=== PATIENT | female | born 1985 | race Caucasian/White ===

== ENCOUNTER 2019-06-13 11:34 | Emergency (ER) | payer OTHER, SELFPAY ==
[2019-06-13 11:43] VITALS: BP 125/77; PULSE 88; RESP 18; TEMP 36.9; O2SAT 100
--- NOTE | 2019-06-13 12:15 | ED.URI ---
HPI - URI/Sore Throat General Chief Complaint: Dizziness Stated Complaint: Dizzy Source: patient Mode of arrival: ambulatory Limitations: no limitations History of Present Illness HPI Narrative: The patient, who is a nonsmoker/ occ drinker, presents with 2 week history of scantly productive cough, congestion, nausea, SOB, dizziness that she describes as spinning , decreased liquid intake, chills and sweats. No fever measured, wheeze, injury to ears, ear drainage, earache, hearing changes, precordial chest pain, no gait changes, N/V/D/ dehydration, , dysuria or frequent/infrequent urination. Symptoms mild, worse with sleeping/supine. Pt states dizziness lasts for about 5 minutes and is worse when sitting up. Pt denies any alleviating factors MD elicited complaint: cough and other (SOB) Onset (ago): week(s) (2) Exacerbating factors: other (sitting up) Associated symptoms: chills, diaphoresis, cough, shortness of breath, nausea and other (congestion, dizziness/ spinning , decreased liquid intake) Related Data Allergies Allergy/AdvReac Type Severity Reaction Status Date / Time No Known Allergies Allergy Verified 06/13/19 11:47 Review of Systems Review of Systems: Narrative: General/Constitutional: Denies: weight loss,fever Eyes: Denies: Redness,discharge Ears/Nose/Throat: Denies: Epistaxis,ear discharge Respiratory: Denies: Hemoptysis Gastrointestinal: Denies: Vomiting, Bleeding-rectal Skin: Denies: Lumps, eruption Neurologic: Denies: Focal Weakness,Sz Hematologic: Denies: Petechiae/Purpura Psychiatric: Denies: Suicidal ideation All Other Systems: Reviewed and Negative All systems reviewed & are unremarkable except as noted in HPI and below PMFSH Family History Family History (Updated 03/10/14 @ 09:14 by DOCTOR UNKNOWN) Other Diabetes mellitus Family history of malignant neoplasm of male breast Family history of mental disorder Family history of seizure disorder Hypertension Social History Social History Smoking status: Never smoker Alcohol intake: current Comments At time of signature, agree with nursing past medical, surgical, social and family history. There is no relevant family history pertinent to the presenting complaint. Exam Narrative: Exam Narrative: General Appearance: Well appearing, Well nourished EYE: PERRLA, Conjunctiva clear, EOMI no nystagmus Neurological: A&O x3, CN II-XII intact Ears: Auditory canal normal, TM normal Nose: Rhinorrhea, Mucousal erythema Mouth/Throat: MM moist, Uvula midline, Pharyngeal erythema Neck: Supple, No adenopathy Respiratory: No respiratory distress, Breath sounds equal, Clear to auscultation Cardiovascular: RRR, No JVD Musculoskeletal: Non tender, Normal strength Skin: Warm, Dry Psychiatric: Normal mood, Normal affect Course Vital Signs Vital signs: Vital Signs Temperature 98.5 F 06/13/19 11:43 Pulse Rate 88 06/13/19 11:43 Respiratory Rate 18 06/13/19 11:43 Blood Pressure 125/77 06/13/19 11:43 Pulse Oximetry 100 06/13/19 11:43 Temperature 98.5 F 06/13/19 11:43 Pulse Rate 88 06/13/19 11:43 Respiratory Rate 18 06/13/19 11:43 Blood Pressure 125/77 06/13/19 11:43 Pulse Oximetry 100 06/13/19 11:43 MDM - URI/Sore Throat Lab Data Labs: Influenza A Screen Negative Reference Range: Negative Influenza B Screen Negative Reference Range: Negative Discharge Plan Discharge Clinical Impression: Positional vertigo Patient Disposition: Home, Self-Care Condition: Stable Instructions: Antibiotic Form, Vertigo (ED) Additional Instructions: Go to hospital for higher testing if not improved Prescriptions: New azelastine 137 mcg (0.1 %) aerosol,spray 137 mcg NASAL Q12H Qty: 30 RF: 0 meclizine 25 mg tablet 25 mg PO BID PRN (Reason: dizziness) Qty: 14 RF: 0 No Action alprazolam 0.25 mg tablet 0.25 mg PO DAILY Qty: 30 RF
== END 2019-06-13 12:30 | disposition home or self-care (01) ==
PROVIDERS: Emergency Provider Emergency Medicine; PCP Family Medicine
DX: R42 Dizziness and giddiness (principal); F41.9 Anxiety disorder, unspecified; F90.9 Attention-deficit hyperactivity disorder, unspecified type
CPT/HCPCS: 87804; 99213; G0463

== ENCOUNTER 2020-04-16 13:05 | Emergency (ER) | payer MEDICAID, SELFPAY ==
--- NOTE | ~2020-04-16 | XR_ITS ---
XR foot LT min 3V 04/16/2020 13:21 INDICATION: Left lateral foot pain for 3 weeks PROCEDURE: 4 views left foot COMPARISON: 01/05/2009 FINDINGS: Fracture, dislocation or subluxation is not identified. Lisfranc joint is intact. There is mild soft tissue swelling adjacent to the fifth MTP joint, nonspecific. No foreign bodies are identi fied. IMPRESSION: 1: NO ACUTE BONE OR JOINT ABNORMALITY IDENTIFIED. Reviewed, dictated and finalized at location [facility]. [facility]
--- NOTE | 2020-04-16 13:16 | ED.LOWEXIN ---
HPI - Extremity Injury (Lower) General Chief Complaint: Extremity Injury, Lower Stated Complaint: L/foot injury Time Seen by Provider: 04/16/20 13:17 Source: patient and RN notes reviewed History of Present Illness HPI Narrative: Patient is a 34-year-old female who presents to the urgent care with complaints of left foot pain. Patient states that it is hurting on the top and along the outside of the left foot. Patient states it has been hurting for approximately 3 weeks and seems to not be improving with elevation and Tylenol. 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 Patient denies of any known injury, fall, trauma to the foot. No other acute complaints. No acute distress noted. Patient aware of the plan of care. Some parts of this dictation were generated by voice recognition software and may contain typographical and/or grammatical inaccuracies. Related Data Allergies Allergy/AdvReac Type Severity Reaction Status Date / Time No Known Allergies Allergy Verified 03/10/20 09:34 Review of Systems Review of Systems: Narrative: CONSTITUTIONAL: Denies fever, chills, or sweats. EYES: Denies visual changes, redness, or discharge. ENT: Denies rhinorrhea, congestion, sore throat, or otalgia. CARDIOVASCULAR: Denies chest pain, palpitations, or edema. RESPIRATORY: Denies cough or dyspnea. GASTROINTESTINAL: Denies abdominal pain, nausea, vomiting, or diarrhea. GENITOURINARY: Denies dysuria or hematuria. SKIN: Denies rash or itching. MUSCULOSKELETAL: Reports of left foot pain NEUROLOGIC: Denies headache, numbness, or weakness. All other systems reviewed are negative, except as documented in HPI. [facility] Past Medical History Medical History Morbid (severe) obesity due to excess calories Family History Family History Father No problems noted. Mother Hypertension Depression Sibling No problems noted. Other Diabetes mellitus Family history of malignant neoplasm of male breast Family history of mental disorder Family history of seizure disorder Social History Social History Smoking status: Never smoker Alcohol intake: current Additional occupation/education comments: cafe server Gender identity (if verbalized by the patient): Female Comments At the time of my signature, I reviewed and agree with the nursing past medical, surgical, social, and family history. There is no relevant family history pertinent to the patient complaint. Exam Narrative: Exam Narrative: GENERAL: This is a well-nourished, well-developed patient, in no apparent distress. HEAD: normocephalic, atraumatic. EYES: PERRL. Sclera clear/white. Vision is grossly intact. EARS: External ears normal NOSE: External nose normal with no obvious nasal discharge, nares without redness, no rhinorrhea. THROAT: Mucous membranes moist NECK: Neck supple SKIN: warm, intact with no suspicious lesions or rash, good texture and turgor. NEURO: awake, alert, and oriented to person, place and time. There were no obvious focal neurologic abnormalities. EXTREMITIES: No obvious deformity or fracture noted to the left lower extremity. Positive strong left pedal pulse with capillary refill less than 2 seconds. Range of motion to left foot within normal limits. No obvious edema or ecchymosis to the left lower extremity. Pain exacerbated with weightbearing activity. Course Vital Signs Vital signs: Vital Signs Temperature 98.9 F 04/16/20 13:24 Pulse Rate 82 04/16/20 13:24 Respiratory Rate 18 04/16/20 13:24 Blood Pressure 137/85 04/16/20 13:24 Pulse Oximetry 99 04/16/20 13:24 Temperature 98.9 F 04/16/20 13:24 Pulse Rate 82 04/16/20 13:24 Respiratory Rate 18 04/16/20 13:24 Blood Pressure 137/
[2020-04-16 13:24] VITALS: BP 137/85; PULSE 82; RESP 18; TEMP 37.2; O2SAT 99
== END 2020-04-16 13:49 | disposition home or self-care (01) ==
PROVIDERS: Emergency Provider Nurse Practitioner Family; PCP Family Medicine
DX: M79.672 Pain in left foot (principal); E66.01 Morbid (severe) obesity due to excess calories; Z68.34 Body mass index [BMI] 34.0-34.9, adult
CPT/HCPCS: 73630; 99213; G0463

== ENCOUNTER 2020-05-14 15:27 | Emergency (ER) | payer MEDICAID, SELFPAY ==
--- NOTE | 2020-05-14 15:28 | ED.GENADULT ---
HPI - General Adult General Chief complaint: Upper Respiratory Infection Stated complaint: Body Aches x 2 days Time Seen by Provider: 05/14/20 15:28 Source: patient Mode of arrival: ambulatory Limitations: no limitations History of Present Illness HPI narrative: 34-year-old female patient presents to the [facility] with complaints of cold symptoms and body aches for the past 2 days. Patient states she was at work at [employer] when she started get some mild body aches and states it has been getting progressively worse the last couple of days. Patient also reports little bit of shortness of breath, a mild cough, rhinorrhea and some congestion. Denies any fevers but states that she has had a little bit of chills. Denies any sore throat or ear pain. Related Data Allergies Allergy/AdvReac Type Severity Reaction Status Date / Time No Known Allergies Allergy Verified 03/10/20 09:34 Review of Systems Review of Systems: Narrative: CONSTITUTIONAL: Denies fever, positive severe body aches, chills, denies sweats. EYES: Denies visual changes, redness, or discharge. ENT: Positive rhinorrhea, congestion, denies sore throat, or otalgia. CARDIOVASCULAR: Denies chest pain, palpitations, or edema. RESPIRATORY: Positive mild nonproductive cough, denies dyspnea. GASTROINTESTINAL: Denies abdominal pain, nausea, vomiting, or diarrhea. GENITOURINARY: Denies dysuria or hematuria. SKIN: Denies rash or itching. MUSCULOSKELETAL: Denies back pain, joint pain, or myalgia. NEUROLOGIC: Denies headache, numbness, or weakness. PSYCHIATRIC: Denies anxiety or depression. [facility] Past Medical History Medical History Morbid (severe) obesity due to excess calories Family History Family History Father No problems noted. Mother Hypertension Depression Sibling No problems noted. Other Diabetes mellitus Family history of malignant neoplasm of male breast Family history of mental disorder Family history of seizure disorder Social History Social History Smoking status: Never smoker Alcohol intake: current Additional occupation/education comments: restaurant server Gender identity (if verbalized by the patient): Female Comments At the time of my signature I agree with nursing past medical history, surgical, social, and family history. There is no relevant family history pertinent to the presenting complaint. Exam Narrative: Exam Narrative: GENERAL: Well-appearing, well-nourished, and in no acute distress. HEAD: Normocephalic, atraumatic. EYES: PERRLA and EOMI. ENT: Nares with erythema and edema noted bilaterally, no rhinorrhea or epistaxis. Mucous membranes moist. Posterior pharynx no erythema, tonsillectomy, exudates or lesions present. Bilateral TMs are clear no erythema or foreign bodies to the canal. NECK: Supple. No lymphadenopathy CHEST: Clear to auscultation. No respiratory distress. HEART: Regular rate and rhythm. No murmur heard. Normal peripheral pulses. ABDOMEN: Soft, nontender, nondistended, normal active bowel sounds. EXTREMITIES: Normal range of motion. No edema. SKIN: Warm, dry, no rash. NEURO: No focal deficits. Alert and oriented x3. Course Vital Signs Vital signs: Vital Signs Temperature 36.7 C 05/14/20 15:47 Pulse Rate 90 05/14/20 15:47 Respiratory Rate 18 05/14/20 15:47 Blood Pressure 110/65 05/14/20 15:47 Pulse Oximetry 100 05/14/20 15:47 Temperature 36.7 C 05/14/20 15:47 Pulse Rate 90 05/14/20 15:47 Respiratory Rate 18 05/14/20 15:47 Blood Pressure 110/65 05/14/20 15:47 Pulse Oximetry 100 05/14/20 15:47 Vital signs reviewed Medical Decision Making Differential Diagnosis Differential Diagnosis: Differential diagnosis: Allergic rhinitis, chronic sinusitis, tonsillitis, acute sinusitis, infectious monon
[2020-05-14 15:47] VITALS: BP 110/65; PULSE 90; RESP 18; TEMP 36.7; O2SAT 100
== END 2020-05-14 16:00 | disposition home or self-care (01) ==
PROVIDERS: Emergency Provider Nurse Practitioner Family; PCP Family Medicine
DX: U07.1 COVID-19 (principal); E66.01 Morbid (severe) obesity due to excess calories; Z68.34 Body mass index [BMI] 34.0-34.9, adult
CPT/HCPCS: 87081; 87147; 87426; 87804; 87880; 99213; C9803; G0463

== ENCOUNTER 2020-08-22 17:24 | Emergency (ER) | payer BC, SELFPAY ==
--- NOTE | 2020-08-22 17:33 | ED.ABDPAIN ---
HPI - Abdominal Pain General Chief Complaint: Abdominal Pain Stated Complaint: stomach pains Time Seen by Provider: 08/22/20 17:33 Source: patient and family Mode of arrival: ambulatory History of Present Illness HPI narrative: PATIENT STATES SHE IS ON HER PERIOD AND HER CRAMPING IS WORSE THAN NORMAL. PATIENT STATES SHE HAS TAKEN MIDOL 6 HOURS AGO WITH LITTLE RELIEF. PATIENT DENIES ANY ABNORMAL BLEEDING. NO LARGE CLOTS. PATIENT DENIES ANY HISTORY OF ENDOMETRIOSIS AND DENIES ANY CONCERN FOR STD . NO CONSTIPATION AND NO DIARRHEA. no nausea normal appetite and activity. MD elicited complaint: abdominal pain Quality: cramping Radiation: none Migration to: no migration Exacerbating factors: nothing Relieving factors: nothing Associated symptoms: denies other symptoms Related Data Hx Last Menstrual Period: CURRENTLY ON PERIOD Patient : No Allergies Allergy/AdvReac Type Severity Reaction Status Date / Time No Known Allergies Allergy Verified 08/05/20 12:39 Review of Systems Review of Systems: Narrative: CONSTITUTIONAL: Denies fever, chills, or sweats. EYES: Denies visual changes, redness, or discharge. ENT: Denies rhinorrhea, congestion, sore throat, or otalgia. CARDIOVASCULAR: Denies chest pain, palpitations, or edema. RESPIRATORY: Denies cough or dyspnea. GASTROINTESTINAL: Denies abdominal pain, nausea, vomiting, or diarrhea. reports cramping with period is worse than normal GENITOURINARY: Denies dysuria or hematuria. SKIN: Denies rash or itching. MUSCULOSKELETAL: Denies back pain, joint pain, or myalgia. NEUROLOGIC: Denies headache, numbness, or weakness. PSYCHIATRIC: Denies anxiety or depression. [facility] Past Medical History Medical History BMI 34.0-34.9,adult BMI 37.0-37.9, adult COVID-19 Menstrual cramps Morbid (severe) obesity due to excess calories Other symptoms and signs involving emotional state Tattoo of skin Family History Family History Father No problems noted. Mother Hypertension Depression Sibling No problems noted. Other Diabetes mellitus Family history of malignant neoplasm of male breast Family history of mental disorder Family history of seizure disorder Social History Social History Alcohol intake: current Substance use: never Substance use type: does not use Additional occupation/education comments: dietary server Gender identity (if verbalized by the patient): Female Comments At time of signature, agree with nursing past medical, surgical, social and family history. There is no relevant family history pertinent to the presenting complaint Exam Narrative: Exam Narrative: GENERAL: Well-appearing, well-nourished, and in no acute distress. HEAD: Normocephalic, atraumatic. EYES: PERRLA and EOMI. ENT: Nares clear, no rhinorrhea or epistaxis. Mucous membranes moist. NECK: Supple. CHEST: Clear to auscultation. No respiratory distress. HEART: Regular rate and rhythm. No murmur heard. Normal peripheral pulses. ABDOMEN: Soft, nontender, nondistended, normal active bowel sounds. EXTREMITIES: Normal range of motion. No edema. SKIN: Warm, dry, no rash. NEURO: No focal deficits. Alert and oriented x3. [place] Com[place] Scale Eye Opening: Spontaneous 4 [place] Coma Scale Motor: Obeys Commands 6 [place] Coma Scale Verbal: Oriented 5 [place] Coma Scale Total 15 Course Vital Signs Vital signs: Vital Signs Temperature 36.2 C L 08/22/20 17:35 Pulse Rate 92 08/22/20 17:35 Respiratory Rate 20 08/22/20 17:35 Blood Pressure 120/81 08/22/20 17:35 Pulse Oximetry 99 08/22/20 17:35 Temperature 36.2 C L 08/22/20 17:35 Pulse Rate 92 08/22/20 17:35 Respiratory Rate 20 08/22/20 17:35 Blood Pressure 120/81 08/22/20 17:35 Pulse Oximetry 99 08/22/20 17:35 MDM - Abdomi
[2020-08-22 17:35] VITALS: BP 120/81; PULSE 92; RESP 20; TEMP 36.2; O2SAT 99
[2020-08-22] MEDS: KETOROLAC 30 MG/ML VIAL (*BKC) IM (17:52)
--- NOTE | 2020-08-22 17:59 | ED.ABDPAIN ---
HPI - Abdominal Pain General Chief Complaint: Abdominal Pain Stated Complaint: stomach pains Time Seen by Provider: 08/22/20 17:33 Source: patient and family Mode of arrival: ambulatory History of Present Illness HPI narrative: PATIENT STATES SHE IS ON HER PERIOD AND IS HAVING WORSE THAN NORMAL ABDOMINAL CRAMPING. PATIENT DENIES ANY CONCERN FOR OR STD. PATIENT HAS TAKEN MIDOL TODAY WITH MINIMAL RELEIF IN HER DISCOMFORT. NO PELVIC PAIN. NO CONSTIPATION AND NO DIARRHEA. NO NAUSEA AND NO FEVER. PATIENT DENIES ANY HISTORY OF ENDOMETRIOSIS. MD elicited complaint: abdominal pain Quality: cramping Radiation: none Migration to: no migration Exacerbating factors: nothing Relieving factors: nothing Associated symptoms: denies other symptoms Related Data Allergies Allergy/AdvReac Type Severity Reaction Status Date / Time No Known Allergies Allergy Verified 08/05/20 12:39 Review of Systems Review of Systems: Narrative: CONSTITUTIONAL: Denies fever, chills, or sweats. EYES: Denies visual changes, redness, or discharge. ENT: Denies rhinorrhea, congestion, sore throat, or otalgia. CARDIOVASCULAR: Denies chest pain, palpitations, or edema. RESPIRATORY: Denies cough or dyspnea. GASTROINTESTINAL: Denies abdominal pain, nausea, vomiting, or diarrhea.ABDOMINAL CRAMPING GENITOURINARY: Denies dysuria or hematuria. SKIN: Denies rash or itching. MUSCULOSKELETAL: Denies back pain, joint pain, or myalgia. NEUROLOGIC: Denies headache, numbness, or weakness. PSYCHIATRIC: Denies anxiety or depression. [facility] Past Medical History Medical History (Updated 08/22/20 @ 18:11 by VINNIE Rudd) BMI 34.0-34.9,adult BMI 37.0-37.9, adult COVID-19 Dysmenorrhea Menstrual cramps Morbid (severe) obesity due to excess calories Other symptoms and signs involving emotional state Tattoo of skin Family History Family History Father No problems noted. Mother Hypertension Depression Sibling No problems noted. 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 There is no relevant family history pertinent to the presenting complaint Exam Narrative: Exam Narrative: GENERAL: Well-appearing, well-nourished, and in no acute distress. HEAD: Normocephalic, atraumatic. EYES: PERRLA and EOMI. ENT: Nares clear, no rhinorrhea or epistaxis. Mucous membranes moist. NECK: Supple. CHEST: Clear to auscultation. No respiratory distress. HEART: Regular rate and rhythm. No murmur heard. Normal peripheral pulses. ABDOMEN: Soft, nontender, nondistended, normal active bowel sounds. EXTREMITIES: Normal range of motion. No edema. SKIN: Warm, dry, no rash. NEURO: No focal deficits. Alert and oriented x3. [place] Coma Scale Eye Opening: Spontaneous 4 [place] Coma Scale Motor: Obeys Commands 6 [place] Coma Scale Verbal: Oriented 5 [place] Coma Scale Total 15 Course Vital Signs Vital signs: Vital Signs Temperature 36.2 C L 08/22/20 17:35 Pulse Rate 92 08/22/20 17:35 Respiratory Rate 20 08/22/20 17:35 Blood Pressure 120/81 08/22/20 17:35 Pulse Oximetry 99 08/22/20 17:35 Temperature 36.2 C L 08/22/20 17:35 Pulse Rate 92 08/22/20 17:35 Respiratory Rate 20 08/22/20 17:35 Blood Pressure 120/81 08/22/20 17:35 Pulse Oximetry 99 08/22/20 17:35 MDM - Abdominal Pain Differential Diagnosis Differential diagnosis: Likely abdominal pain, acute appendicitis, constipation, div
== END 2020-08-22 18:23 | disposition home or self-care (01) ==
PROVIDERS: Emergency Provider Nurse Practitioner Family; PCP Family Medicine
DX: R10.9 Unspecified abdominal pain (principal); N94.6 Dysmenorrhea, unspecified; Z86.16 Personal history of COVID-19; E66.01 Morbid (severe) obesity due to excess calories
CPT/HCPCS: 81003; 81025; 96372; 99213; G0463; J1885

== ENCOUNTER 2021-04-27 18:40 | Emergency (ER) | payer OTHER, SELFPAY ==
--- NOTE | ~2021-04-27 | XR_ITS ---
[id number] DATE: 04/27/2021 19:09 INDICATION: Injury, right lateral rib pain TECHNIQUE: PA chest. 3 views of the right ribs. COMPARISON: None FINDINGS: No right rib fracture is evident. Normal heart size. No hilar or mediastinal enlargement. No pulmonary infiltrate or consolidation, ple ural effusion or pulmonary vascular congestion or pneumothorax. IMPRESSION: No active cardiac pulmonary disease No detectable right rib fracture Reviewed, dictated and finalized at Location [facility]. Reviewed, dictated and finalized at location A. [facility]
[2021-04-27 18:53] VITALS: BP 134/88; PULSE 73; RESP 18; TEMP 36.6; O2SAT 98
--- NOTE | 2021-04-27 18:58 | ED.GENADULT ---
HPI - General Adult General Chief complaint: Skin/Abscess/Foreign Body Stated complaint: rib pain Source: patient Mode of arrival: ambulatory Limitations: no limitations History of Present Illness HPI narrative: 35 y/o female. PMHx [place], MDD. Presents to [facility] today with acute complaints of RT side rib pain, worsening in the past 1 week. Client reports that he significant other had been lifting her up to pop her back , prior to her manifestation onset. However, adds that after the initial incident, she had also accidentally ran into a stand at work, further injuring her ribs. No additional injury has been identified. No dyspnea, palpitations, chest pain, hemoptysis. She has not yet sought out medical evaluation until now, today. Notes that home IBU has aided mildly with pain relief. No additional acute c/o illness upon PE. Related Data Allergies Allergy/AdvReac Type Severity Reaction Status Date / Time No Known Allergies Allergy Verified 04/27/21 18:59 Review of Systems Review of Systems: CONSTITUTIONAL: Denies fever, chills, sweats. EYES: Denies visual changes, redness, discharge. ENT: Denies rhinorrhea, congestion, sore throat, otalgia. CARDIOVASCULAR: Denies chest pain, palpitations, edema. RESPIRATORY: Denies dyspnea, wheezing, cough GASTROINTESTINAL: Denies abdominal pain, nausea, vomiting, diarrhea. GENITOURINARY: Denies dysuria, hematuria, abnormal discharge SKIN: Denies rash or itching. MUSCULOSKELETAL: RT side rib pain. Denies additional joint pain or myalgia. NEUROLOGIC: Denies numbness, or focal weakness. PSYCHIATRIC: Denies anxiety or depression. All systems reviewed & are unremarkable except as noted in HPI and below PMFSH Past Medical History Medical History Anxiety disorder, unspecified Attention-deficit hyperactivity disorder, unspecified type BMI 34.0-34.9,adult BMI 37.0-37.9, adult COVID-19 Dietary counseling and surveillance (05/03/15) Dysmenorrhea External hemorrhoid FH: thyroid disease Hematochezia Influenza B Menstrual cramps Morbid (severe) obesity due to excess calories Other symptoms and signs involving emotional state Tattoo of skin Family History Family History Father No problems noted. Mother Hypertension Depression Sibling No problems noted. Other Diabetes mellitus Family history of malignant neoplasm of male breast Family history of mental disorder Family history of seizure disorder Social History Social History Second hand tobacco smoke exposure: Yes Alcohol intake: current Substance use: never Substance use type: does not use Additional occupation/education comments: cafeteria server Gender identity (if verbalized by the patient): Female Exam Narrative: GENERAL: This is a well-nourished, well-developed patient, in no apparent distress. NOSE: External nose normal. NECK: Neck supple, non-tender without lymphadenopathy, masses or thyromegaly. CARDIOVASCULAR: Regular rate and rhythm without murmurs, gallops, or rubs. RESPIRATORY: Clear to auscultation. Breath sounds equal bilaterally. No wheezes, rales, or rhonchi. With reproducible chest wall pain located to intercostal spaces 5-8. No crepitus, no flailing. Chest wall rises symetrically. GASTROINTESTINAL: Abdomen soft, non-tender, nondistended. SKIN: warm, intact. NEURO: No focal neurologic deficits. Course Course Level of Care: Express Care Visit Vital Signs Vital signs: Vital Signs Temperature 36.6 C 04/27/21 18:53 Pulse Rate 73 04/27/21 18:53 Respiratory Rate 18 04/27/21 18:53 Blood Pressure 134/88 04/27/21 18:53 Pulse Oximetry 98 04/27/21 18:53 Temperature 36.6 C 04/27/21 18:53 Pulse Rate 73 04/27/21 18:53 Respiratory Rate 18 04/27/21 18:53 Blood Pressure 13
== END 2021-04-27 19:24 | disposition home or self-care (01) ==
PROVIDERS: Emergency Provider Nurse Practitioner Adult Health; PCP Family Medicine
DX: R07.81 Pleurodynia (principal); E66.01 Morbid (severe) obesity due to excess calories; Z68.33 Body mass index [BMI] 33.0-33.9, adult; Z86.16 Personal history of COVID-19; F90.9 Attention-deficit hyperactivity disorder, unspecified type; F41.1 Generalized anxiety disorder
CPT/HCPCS: 71101; 99213; G0463

== ENCOUNTER 2022-05-13 14:08 | Emergency (ER) | payer OTHER, SELFPAY ==
--- NOTE | ~2022-05-13 | XR_ITS ---
EXAMINATION: XR chest 2V Exam Date/Time: 05/13/2022 14:26 FURNITURE P[employer]ER HISTORY: cough congestion w/sob Comparison: 08/25/2011. RESULT: Lines, tubes, and devices: None. Lungs and pleura: Clear. Cardiomediastinal silhouette: Stable. Calcified left hilar node. Other: No acute osseous or upper abdominal finding. IMPRESSION: No acute cardiopulmonary process. Reviewed, dictated and finalized at location K. IT[facility] PACKER
--- NOTE | 2022-05-13 14:17 | ED.URI ---
HPI - URI/Sore Throat General Chief Complaint: Upper Respiratory Infection Stated Complaint: Shortness of Breath,Congestion Time Seen by Provider: 05/13/22 14:17 Source: patient Mode of arrival: ambulatory Limitations: no limitations History of Present Illness HPI Narrative: 36-year-old male presents with complaint of sinus congestion since . States she recently saw her PCP for this complaint and was given a Z-Ky. She is also taking a nasal spray and Zyrtec. Reports no relief in her symptoms. She also reports left mid back pain for 2 weeks. She states started after coughing. she told her PCP about back pain and was told to come back if it got worse. She states it is now worse and is making it hard for her to take a deep breath. Denies shortness of breath. Reports that back pain is worse with movement. Reports only coughing which she has drainage in her throat. Afebrile. Patient arrived with breathe right strip over nose. All systems reviewed and negative except as noted above. Related Data Home Medications Medication Instructions Recorded Confirmed dextroamphetamine-amphetamine 10 10 mg PO DAILY 05/13/22 05/13/22 mg tablet Allergies Allergy/AdvReac Type Severity Reaction Status Date / Time No Known Allergies Allergy Verified 05/13/22 14:19 Review of Systems Review of Systems: CONSTITUTIONAL: Denies fever, chills, or sweats. EYES: Denies visual changes, redness, or discharge. ENT: Reports rhinorrhea, congestion, sinus pressure, postnasal drainage deniessore throat, or otalgia. CARDIOVASCULAR: Denies chest pain, palpitations, or edema. RESPIRATORY: reports cough. Denies dyspnea. GASTROINTESTINAL: Denies abdominal pain, nausea, vomiting, or diarrhea. GENITOURINARY: Denies dysuria or hematuria. SKIN: Denies rash or itching. MUSCULOSKELETAL: reports left-sided midback pain. Denies joint pain, or myalgia. NEUROLOGIC: Denies headache, numbness, or weakness. PSYCHIATRIC: Denies anxiety or depression. All other systems reviewed are negative, except as documented in HPI. [facility] Past Medical History Medical History (Updated 05/13/22 @ 14:47 by Nora Atkinson NP) Anxiety disorder, unspecified Attention-deficit hyperactivity disorder, unspecified type BMI 34.0-34.9,adult BMI 36.0-36.9,adult BMI 37.0-37.9, adult COVID-19 Dietary counseling and surveillance (05/03/15) Dysmenorrhea External hemorrhoid FH: thyroid disease Hematochezia Influenza B Menstrual cramps Morbid (severe) obesity due to excess calories Other symptoms and signs involving emotional state Tattoo of skin Family History Family History Father No problems noted. Mother Hypertension Depression Sibling Depression Other Diabetes mellitus Family history of malignant neoplasm of male breast Family history of mental disorder Family history of seizure disorder Social History Social History Smoking status: Never smoker Second hand tobacco smoke exposure: Yes Alcohol intake: current Substance use: never Substance use type: does not use Lack of Transportation: YES Lack of Food: Never True Current Housing: I Have Housing Concerned About Future Housing: No Difficulty Paying Gas/Electric Bills: No Difficulty Paying for Meds: No Currently Unemployed: No Education: Associate Degree Difficulty w/ Childcare or Family Care: No Living arrangements: with family Occupation/Education: occupation 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 There is no relevant family history pertinent to the presenting complaint. Exam Narrative: GENERAL: This is a well-nourished, well-developed
[2022-05-13 14:18] VITALS: BP 135/88; PULSE 106; RESP 18; TEMP 36.5; O2SAT 100
[2022-05-13 14:20] VITALS: BP 135/88; PULSE 106; RESP 18; TEMP 36.5; O2SAT 100
== END 2022-05-13 14:50 | disposition home or self-care (01) ==
PROVIDERS: Emergency Provider Nurse Practitioner Family; PCP Family Medicine
DX: J01.90 Acute sinusitis, unspecified (principal); B96.89 Other specified bacterial agents as the cause of diseases classified elsewhere; S39.012A Strain of muscle, fascia and tendon of lower back, initial encounter; X58.XXXA Exposure to other specified factors, initial encounter
CPT/HCPCS: 71046; 99213; G0463

== ENCOUNTER 2023-01-04 12:54 | Emergency (ER) | payer OTHER, SELFPAY ==
--- NOTE | 2023-01-04 12:55 | ED.URI ---
HPI - URI/Sore Throat General Chief Complaint: Upper Respiratory Infection Stated Complaint: Cough,Lt Ear Irritation Time Seen by Provider: 01/04/23 13:01 Source: patient, RN notes reviewed and old records reviewed Mode of arrival: ambulatory Limitations: no limitations History of Present Illness HPI Narrative: 37-year-old female presents to the [facility] complaints of a cough and left ear discomfort since Saturday. Symptoms for 5 days. Reports taking an at home covid test yesterday, reports as negitive. Prescribed a Z-Ky on01/02/23 by primary care provider. States she has been taking DayQuil and NyQuil. Related Data Allergies Allergy/AdvReac Type Severity Reaction Status Date / Time No Known Allergies Allergy Verified 01/04/23 12:56 Review of Systems Review of Systems: All systems reviewed & are unremarkable except as noted in HPI and below Constitutional: Constitutional: Reports no additional constitutional complaints Eyes: Eyes: Reports no additional eye complaints ENT: Reports system reviewed and no additional complaints, except as documented Cardiovascular: Cardiovascular: Reports no additional cardiovascular complaints, Denies chest pain and Denies dyspnea Respiratory: Respiratory: Reports as per HPI, Denies chest congestion, Reports cough and Denies dyspnea Gastrointestinal: Gastrointestinal: Reports no additional gastrointestinal complaints, Denies abdominal pain, Denies nausea and Denies vomiting Musculoskeletal: Musculoskeletal: Reports no additional musculoskeletal complaints Integumentary/Breasts: Skin/Breast: Reports system reviewed and no additional complaints, except as docu Neurologic: Reports system reviewed and no additional complaints, except as documented Psychiatric: Psychiatric: Reports no additional psychiatric complaints Allergic/Immunologic: Allergic/Immunologic: Reports no additional allergic/immunologic complaints PMFSH Past Medical History Medical History Anxiety disorder, unspecified Attention-deficit hyperactivity disorder, unspecified type BMI 34.0-34.9,adult BMI 36.0-36.9,adult BMI 37.0-37.9, adult COVID-19 Dietary counseling and surveillance (05/03/15) Dysmenorrhea External hemorrhoid FH: thyroid disease Hematochezia Influenza B Menstrual cramps Morbid (severe) obesity due to excess calories Other symptoms and signs involving emotional state Tattoo of skin Family History Family History Father No problems noted. Mother Hypertension Depression Sibling Depression Other Diabetes mellitus Family history of malignant neoplasm of male breast Family history of mental disorder Family history of seizure disorder Social History Social History Smoking status: Never smoker Second hand tobacco smoke exposure: Yes Alcohol intake: current Substance use: never Substance use type: does not use Lack of Transportation: YES Lack of Food: Never True Current Housing: I Have Housing Concerned About Future Housing: No Difficulty Paying Gas/Electric Bills: No Difficulty Paying for Meds: No Currently Unemployed: No Education: Associate Degree Difficulty w/ Childcare or Family Care: No Living arrangements: with family Occupation/Education: occupation 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 There is no relevant family history pertinent to the patient complaint. Exam Const: General: cooperative, healthy appearing, comfortable, no acute distress, well developed, alert and well nourished Nutritional Appearance: well nourished and obese Orientation/consciousness
[2023-01-04 13:02] VITALS: BP 130/86; PULSE 79; RESP 18; TEMP 36.4; O2SAT 100
== END 2023-01-04 13:11 | disposition home or self-care (01) ==
PROVIDERS: Emergency Provider Nurse Practitioner; PCP Family Medicine
DX: R09.82 Postnasal drip (principal); R05.1 Acute cough; H65.02 Acute serous otitis media, left ear
CPT/HCPCS: 99213; G0463

== ENCOUNTER 2023-12-22 14:03 | Emergency (ER) | payer OTHER, SELFPAY ==
[2023-12-22 14:17] VITALS: BP 124/62; PULSE 86; RESP 16; TEMP 36.9; O2SAT 100
[2023-12-22 14:36] LABS: EDSTREPNEGPOS1 Negative (Negative)
--- NOTE | 2023-12-22 15:54 | ED.URI ---
HPI - URI/Sore Throat General Chief Complaint: Upper Respiratory Infection Stated Complaint: throat pain Time Seen by Provider: 12/22/23 14:34 Source: patient, RN notes reviewed and old records reviewed Mode of arrival: ambulatory Limitations: no limitations History of Present Illness HPI Narrative: 38-year-old female to [facility] with 1 week cough, congestion, sore throat and vomiting x1. Patient reports she believes she vomited due to all of the drainage from her sinuses. Patient denies fever, shortness of breath, chest pain, allergies, pertinent medical history. Patient attempted to treat at home with DayQuil, NyQuil, ibuprofen. Patient states that throat pain is worse with swallowing. Patient reports taking 2 Negative COVID tests at home. patient able to tolerate fluids by mouth. Patient resting uncomfortably in exam room in no acute distress. Respirations even and nonlabored. Patient able to speak in complete sentences without difficulty. Patient able to control secretions. Related Data Allergies Allergy/AdvReac Type Severity Reaction Status Date / Time No Known Allergies Allergy Verified 12/22/23 14:14 Review of Systems Review of Systems: All systems reviewed & are unremarkable except as noted in HPI and below Constitutional: Constitutional: Reports no additional constitutional complaints Eyes: Eyes: Reports no additional eye complaints ENT: Reports as per HPI, Reports nasal congestion and Reports sore throat Cardiovascular: Cardiovascular: Reports no additional cardiovascular complaints, Denies chest pain and Denies dyspnea Respiratory: Respiratory: Reports no additional respiratory complaints, Reports cough and Denies dyspnea Gastrointestinal: Gastrointestinal: Reports as per HPI and Reports vomiting ( x1) Musculoskeletal: Musculoskeletal: Reports no additional musculoskeletal complaints Neurologic: Reports system reviewed and no additional complaints, except as documented Psychiatric: Psychiatric: Reports no additional psychiatric complaints PMFSH Past Medical History Medical History Anxiety disorder, unspecified Attention-deficit hyperactivity disorder, unspecified type BMI 37.0-37.9, adult Cold intolerance of hand COVID-19 Dietary counseling and surveillance (05/03/15) Dysmenorrhea External hemorrhoid FH: thyroid disease Hematochezia Influenza B Menstrual cramps Morbid (severe) obesity due to excess calories Other symptoms and signs involving emotional state Tattoo of skin Family History Family History Father No problems noted. Mother Hypertension Depression Sibling Depression Other Diabetes mellitus Family history of malignant neoplasm of male breast Family history of mental disorder Family history of seizure disorder Social History Social History Smoking status: Never smoker Second hand tobacco smoke exposure: Yes Alcohol intake: current Substance use: never Substance use type: does not use Lack of Transportation: YES Lack of Food: Never True Current Housing: I Have Housing Concerned About Future Housing: No Difficulty Paying Gas/Electric Bills: No Difficulty Paying for Meds: No Currently Unemployed: No Education: Associate Degree Difficulty w/ Childcare or Family Care: No Living arrangements: with family Occupation/Education: occupation 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 There is no relevant family history pertinent to the patient complaint. Exam Const: General: cooperative, no acute distress, alert, ill appearing acute
== END 2023-12-22 14:53 | disposition home or self-care (01) ==
PROVIDERS: Emergency Provider Nurse Practitioner Family; PCP Family Medicine
DX: J02.9 Acute pharyngitis, unspecified (principal); E66.01 Morbid (severe) obesity due to excess calories; Z68.34 Body mass index [BMI] 34.0-34.9, adult; F41.9 Anxiety disorder, unspecified; F90.9 Attention-deficit hyperactivity disorder, unspecified type; Z86.16 Personal history of COVID-19
CPT/HCPCS: 87081; 87880; 99213; G0463

== ENCOUNTER 2024-07-22 17:30 | Emergency (ER) | payer OTHER, SELFPAY ==
--- NOTE | ~2024-07-22 | CT_ITS ---
History: Fall PROCEDURE: CT cervical spine without intravenous contrast. COMPARISON: None TECHNIQUE: Multiple contiguous axial images of the cervical spine were performed without the administration of i ntravenous contrast. DLP: 360 mGy-cm FINDINGS: Straightening and slight reversal of the normal curvature of the cervical spine is identified, likely muscular in origin. No acute fractures are present. The bilateral lung apices are unremarkable. No soft tissue abnormality is present. The airway is patent.. Impression: Straightening and slight reversal of the normal curvature of the cervical spine, likely muscular in o rigin. No acute fracture. Reviewed, dictated and finalized at location A. Impression: Straightening and slight reversal of the normal curvature of the cervical spine , likely muscular in origin. No acute fracture.
--- NOTE | ~2024-07-22 | CT_ITS ---
History: Fall PROCEDURE: CT head without contrast. COMPARISON: None TECHNIQUE: Axial imaging of the head performed from the skull base to the vertex without IV contrast. Sagittal a nd coronal reformations obtained. DLP: 605 mGy-cm FINDINGS: The ventricles are normal in size, shape and position. There is no mass, mass effect or midline shift. There is no abnormal extra-axial fluid collection or intracranial hemorrhage. Visualized paranasal sinuses are clear. The mastoid air cells are well aerated. No acute displaced fractures within the overlying cranium. Impression: No acute intracranial hemorrhage or suspicious mass effect. Reviewed, dictated and finalized at location A. Impression: No acute intracranial hemorrhage or suspicious mass effect.
[2024-07-22 17:33] VITALS: BP 180/90; PULSE 84; RESP 16; TEMP 36.4; O2SAT 98
[2024-07-22] MEDS: ACETAMINOPHEN 500 MG TABLET 1000 MG PO (18:03)
[2024-07-22] MEDS: KETOROLAC 10 MG TABLET PO (18:03)
--- NOTE | 2024-07-22 18:23 | ED_ITS ---
HPI - Fall General Chief Complaint: Fall Stated Complaint: fall Time Seen by Provider: 07/22/24 17:40 History of Present Illness HPI Narrative: 39-year-old otherwise healthy female presenting to the emergency room with a chief complaint of headache and neck pain. Patient states she slipped in the shower and fell backwards striking the back of her head against the wall and the shower curtain hit her left side head. No loss of consciousness and she does not take any blood thinner medications. She was otherwise in her normal state of health. No nausea or vomiting, no fever, chills, vision changes. She is concerned about a potential concussion. This injury occurred about 12 hours prior to initial evaluation in the ED. No chest pain, abdominal pain, back pain. She is ambulatory without ataxia antalgic gait. Did not take anything for pain prior to arrival. Related Data Allergies Allergy/AdvReac Type Severity Reaction Status Date / Time No Known Allergies Allergy Verified 07/22/24 17:45 Review of Systems Review of Systems: As reviewed above in HPI [facility] Past Medical History Medical History Otitis media with effusion Cold intolerance of hand Anxiety disorder, unspecified Attention-deficit hyperactivity disorder, unspecified type Dietary counseling and surveillance (05/03/15) External hemorrhoid FH: thyroid disease Hematochezia Influenza B Dysmenorrhea Menstrual cramps Other symptoms and signs involving emotional state Tattoo of skin COVID-19 BMI 37.0-37.9, adult Morbid (severe) obesity due to excess calories Family History Family History Father No problems noted. Mother Hypertension Depression Sibling Depression Other Diabetes mellitus Family history of malignant neoplasm of male breast Family history of mental disorder Family history of seizure disorder Social History Social History Smoking status: Never smoker Second hand tobacco smoke exposure: Yes Alcohol intake: current Substance use: never Substance use type: does not use Lack of Transportation: YES Lack of Food: Never True Current Housing: I Have Housing Concerned About Future Housing: No Difficulty Paying Gas/Electric Bills: No Difficulty Paying for Meds: No Currently Unemployed: No Education: Associate Degree Difficulty w/ Childcare or Family Care: No Living arrangements: with family Occupation/Education: occupation 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 Mucous membranes moist. NECK: Supple. CHEST: [Clear to auscultation. No respiratory distress.] HEART: [Regular rate and rhythm]. No murmur heard. [Normal peripheral pulses.] ABDOMEN: [Soft, nondistended], [nontender], [No rigidity or guarding] EXTREMITIES: Normal range of motion. [No edema.] SKIN: Warm, dry, no rash. NEURO: [No focal deficits]. Alert and oriented [x3.] PSYCH: [Normal mood and affect.] Course Vital Signs Vital signs: Vital Signs Temperature 36.4 C 07/22/24 17:33 Pulse Rate 84 07/22/24 17:33 Respiratory Rate 16 07/22/24 17:33 Blood Pressure 180/90 H 07/22/24 17:33 Pulse Oximetry 98 07/22/24 17:33 Temperature 36.4 C 07/22/24 17:33 Pulse Rate 84 07/22/24 17:33 Respiratory Rate 16 07/22/24 17:33 Blood Pressure 180/90 H 07/22/24 17:33 Pulse Oximetry 98 07/22/24 17:33 MDM - Fall MDM Narrative Medical decision making narrative: 39-year-old female with no pertinent past medical history presenting after a closed head injury. She slipped in the shower and fell backwards striking her head and neck against the wall and the left side of her head got struck by the shower curtain nanci. Did not lose consciousness and does not take blood thinners. She has normal examination without any signs of trauma. She is awake alert oriented without any neurological complaints and unremarkable neurological assessment. She is awake answering all questions appropriately suspicion for intracranial pathology such as a bleed or skull fracture is very low. She is complaining of some posterior head and neck pain. Possible concussion versus cervical strain. CT of the cervical spine and brain were ordered. She is given Toradol and Tylenol for analgesia and re-evaluated. CT scans are reassuring, no acute fractures or dislocations in the cervical spine. No acute intracranial pathology. Patient felt improved after medications. She is safe and stable for discharge home at this time was given return precautions and concussion literature. Medical Records Attestation: I reviewed the patient's medical records. Imaging Data Attestation: I personally reviewed and interpreted this imaging study as follows: My impression: Impressions Head CT 07/22/24 18:21 Impression: No acute intracranial hemorrhage or suspicious mass effect. Cervical Spine CT 07/22/24 18:25 Impression: Straightening and slight reversal of the normal curvature of the cervical spine, likely muscular in origin. No acute fracture. Discharge Plan Discharge Clinical Impression: CHI (closed head injury), Concussion Patient Disposition: Home Condition: Stable Instructions: Antibiotic Form, Concussion (ED), Head Injury (ED) Additional Instructions: Your CT scans are normal, no acute injuries to the bony structures, brain, or soft tissues of the head or neck. Follow-up with regular doctor. Take Tylenol and ibuprofen for any aches or pains. Concussion symptoms can last up to several weeks even. Return with any emergent concerns. Patient Language: Emir[place] Prescriptions: No Action alprazolam 0.5 mg tablet 0.5 mg PO QHS PRN (Reason: anxiety) Qty: 30 0RF duloxetine 60 mg capsule,delayed release(DR/EC) 60 mg PO DAILY Qty: 30 0RF Follow-up/Referrals: Polo Kearns MD [Primary Care Provider] - Time of Disposition: 18:39
== END 2024-07-22 18:57 | disposition home or self-care (01) ==
PROVIDERS: Emergency Provider Student in an Organized Health Care Education/Training Program; PCP Family Medicine
DX: S06.0X0A Concussion without loss of consciousness, initial encounter (principal); F41.9 Anxiety disorder, unspecified; F90.9 Attention-deficit hyperactivity disorder, unspecified type; E66.9 Obesity, unspecified; Z68.33 Body mass index [BMI] 33.0-33.9, adult; W18.2XXA Fall in (into) shower or empty bathtub, initial encounter
CPT/HCPCS: 70450; 72125; 99284; A9270

== ENCOUNTER 2024-07-29 14:13 | Emergency (ER) | payer OTHER, SELFPAY ==
[2024-07-29] VITALS (7 sets, daily range): BP systolic 123–147; BP diastolic 75–108; PULSE 71–86; RESP 14–19; TEMP 36.4; O2SAT 96–100
--- NOTE | ~2024-07-29 | CT_ITS ---
History: Recent history of head trauma, diagnosed with concussion with worsening concussion symptoms PROCEDURE: CT head without contrast. COMPARISON: 07/22/2024 TECHNIQUE: Axial imaging of the head performed from the skull base to the vertex without IV contrast. Sagittal a nd coronal reformations obtained. DLP: 605 mGy-cm FINDINGS: The ventricles are normal in size, shape and position. There is no mass, mass effect or midline shift. There is no abnormal extra-axial fluid collection or intracranial hemorrhage. Visualized paranasal sinuses are clear. The mastoid air cells are well aerated. No acute displaced fractures within the overlying cranium. Impression: No acute intracranial hemorrhage or suspicious mass effect. Reviewed, dictated and finalized at location A. Impression: No acute intracranial hemorrhage or suspicious mass effect.
[2024-07-29] MEDS: ONDANSETRON INJ 4 MG/2 ML VIAL IV PUSH (18:27)
[2024-07-29] MEDS: MECLIZINE HCL 25 MG TABLET PO (18:27)
[2024-07-29] MEDS: ACETAMINOPHEN 500 MG TABLET 1000 MG PO (18:27)
[2024-07-29] MEDS: SODIUM CHLORIDE 0.9% IV 1,000 ML 999 ML IV CONT (18:27)
--- NOTE | 2024-07-29 18:53 | ECG_ITS ---
Test Date: 2024-07-29 19:51:27 Measurements Intervals [place] Rate: 70 P: 28 NH: 175 QRS: 56 QRSD: 98 T: 65 QT: 412 QTc: 445 Interpretive Statements SINUS RHYTHM WARNING: DATA QUALITY MAY AFFECT INTERPRETATION INTERPRETATION BASED ON A DEFAULT AGE OF 40 YEARS No previous ECG available for comparison Electronically Signed On 07-31-2024 18:53:59 CDT by Evelin Miller
--- NOTE | 2024-07-29 18:54 | ED.GENADULT ---
HPI - General Adult General Chief complaint: Unspecified Stated complaint: has concussion, v/dizzy Time Seen by Provider: 07/29/24 17:12 Source: patient Mode of arrival: ambulatory Limitations: no limitations History of Present Illness HPI narrative: This is a 39-year-old female that presents to the emergency department for continued symptoms after a recent head injury. Reports she was evaluated in the ER here after a fall in the shower. She had negative imaging of her brain. She has continued to experience headache, dizziness, vomiting. Reports her blood pressure has been elevated. Denies vision changes, focal numbness or weakness. Related Data Allergies Allergy/AdvReac Type Severity Reaction Status Date / Time No Known Allergies Allergy Verified 07/29/24 16:47 Review of Systems Review of Systems: CONSTITUTIONAL: Denies fever EYES: Denies visual changes GASTROINTESTINAL: Reports nausea, vomiting NEUROLOGIC: Reports headache. Denies numbness, or weakness. All systems reviewed & are unremarkable except as noted in HPI and below PMFSH Past Medical History Medical History Otitis media with effusion Cold intolerance of hand Anxiety disorder, unspecified Attention-deficit hyperactivity disorder, unspecified type Dietary counseling and surveillance (05/03/15) External hemorrhoid FH: thyroid disease Hematochezia Influenza B Dysmenorrhea Menstrual cramps Other symptoms and signs involving emotional state Tattoo of skin COVID-19 BMI 37.0-37.9, adult Morbid (severe) obesity due to excess calories Family History Family History Father No problems noted. Mother Hypertension Depression Sibling Depression Other Diabetes mellitus Family history of malignant neoplasm of male breast Family history of mental disorder Family history of seizure disorder Social History Social History Smoking status: Never smoker Second hand tobacco smoke exposure: Yes Alcohol intake: current Substance use: never Substance use type: does not use Lack of Transportation: YES Lack of Food: Never True Current Housing: I Have Housing Concerned About Future Housing: No Difficulty Paying Gas/Electric Bills: No Difficulty Paying for Meds: No Currently Unemployed: No Education: Associate Degree Difficulty w/ Childcare or Family Care: No Living arrangements: with family Occupation/Education: occupation 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 HEAD: Normocephalic, atraumatic. EYES: PERRLA and EOMI. ENT: Nares clear, no rhinorrhea or epistaxis. Mucous membranes moist. Oropharynx without tonsillar hypertrophy exudate or other lesions. Bilateral TMs pearly soto non-bulging NECK: Supple. No adenopathy or masses. CHEST: Clear to auscultation. No respiratory distress. No wheezes rales or rhonchi HEART: Regular rate and rhythm. No murmur heard. Normal peripheral pulses. EXTREMITIES: Normal range of motion. No edema. Strength equal in bilateral upper and lower extremities (5/5) SKIN: Warm, dry, no rash. NEURO: No focal deficits. Alert and oriented x3. CN II-XII grossly intact. Normal gait PSYCH: Normal mood and affect Course Course Emergency Course: Patient updated on her workup and agrees with plan of care Vital Signs Vital signs: Vital Signs Temperature 97.6 F 07/29/24 14:28 Pulse Rate 71 07/29/24 14:28 Respiratory Rate 16 07/29/24 14:28 Blood Pressure 147/108 H 07/29/24 14:28 Pulse Oximetry 96 07/29/24 14:28 Temperature 97.6 F 07/29/24 14:28 Pulse Rate 74 07/29/24 21:54 Respiratory Rate 15 07/29/24 21:54 Blood Pressure 128/79 07/29/24 21:54 Pulse Oximetry 98 07/29/24 21:54 Medical Decision Making [facility] Narrative Medical decision making narrative: Patient presents to the emergency department for continued symptoms after a recent head injury. Reporting headache, dizziness, vomiting. Mildly hypertensive upon arrival, this normalized without intervention. She is neurologically intact. Other vitals are normal. CBC without concerning findings. Metabolic panel with mild transaminitis. CT brain without acute findings. EKG without concerning changes. Patient updated on her workup and agrees with plan of care. Instructed on continue follow-up with her primary provider. She was given warnings to return to the ER Vital Signs Vital Signs: Vital Signs Temperature 97.6 F 07/29/24 14:28 Pulse Rate 71 07/29/24 14:28 Respiratory Rate 16 07/29/24 14:28 Blood Pressure 147/108 H 07/29/24 14:28 Pulse Oximetry 96 07/29/24 14:28 Temperature 97.6 F 07/29/24 14:28 Pulse Rate 74 07/29/24 21:54 Respiratory Rate 15 07/29/24 21:54 Blood Pressure 128/79 07/29/24 21:54 Pulse Oximetry 98 07/29/24 21:54 Lab Data Lab results reviewed: Yes I reviewed the patient's lab results. 07/29/24 19:26 07/29/24 19:26 Labs: Lab Results 07/29/24 Range/Units 19:26 WBC 9.3 (4.5-10.0) K/mm3 RBC 3.97 L (4.2-5.4) M/mm3 Hgb 13.4 (12.0-15.0) g/dL Hct 40.7 (37.0-47.0) % MCV 102.5 H (80-100) fl MCH 33.8 (26-34) pg MCHC 32.9 (32-36) g/dl RDW 12.8 (11.5-14.5) % Plt Count 343 (150-375) k/mm3 MPV 10.0 (7.4-10.4) fl Immature Gran % (Auto) 0.3 (0-0.5) % Neut % (Auto) 79.9 H (45.5-73.1) % Lymph % (Auto) 14.3 L (18.3-44.2) % [place] % (Auto) 5.0 (2.6-8.5) % Eos % (Auto) 0.2 (0-4.4) % Baso % (Auto) 0.3 (0.2-1.2) % Lymph # (Auto) 1.33 (0.9-3.2) K/mm3 [place] # (Auto) 0.5 (0.1-0.6) K/mm3 Eos # (Auto) 0.0 (0-0.3) K/mm3 Baso # (Auto) 0.0 (0.0-0.1) K/mm3 Abs Immat Gran (auto) 0.03 (0.00-0.031) K/mm3 Absolute Neuts (auto) 7.4 H (1.3-6.7) K/mm3 Absolute Nucleated RBC 0.000 (0.0-0.012) K/mm3 Nucleated RBC % 0.0 (0.0-0.2) % Sodium 133 L (137-145) mmol/L Potassium 4.4 (3.4-5.0) mmol/L Chloride 99 (98-107) mmol/L Carbon Dioxide 27 (22-30) mmol/L Anion Gap 7 (4-12) mmol/L BUN 12 (7-17) mg/dL Creatinine 0.58 L (0.7-1.0) mg/dL Estim Creat Clear Calc 135 ml/min Estimated GFR > 60 (59 - ) Glucose 107 (65-110) mg/dL Calcium 8.7 (8.4-10.2) mg/dL Total Bilirubin 0.5 (0.2-1.3) mg/dL AST 63 H (14-36) U/L ALT 68 H (6-35) U/L Alkaline Phosphatase 75 (38-126) U/L Total Protein 7.0 (6.3-8.2) g/dL Albumin 4.4 (3.5-5.1) g/dL Imaging Data Radiologist's impression: ITS Impressions Head CT 07/29/24 19:07 Impression: No acute intracranial hemorrhage or suspicious mass effect. ECG Data EKG #1: ECG completion date: 07/29/24 EKG Interpretation: normal rate, sinus rhythm, no ST changes and normal QT Critical Care Time Critical Care Time Critical Care Time: No Discharge Plan Discharge Clinical Impression: Dizziness Concussion Qualifiers: Encounter type: subsequent encounter Loss of consciousness presence/duration: without LOC Qualified Code(s): S06.0X0D - Concussion without loss of consciousness, subsequent encounter Patient Disposition: Home Condition: Improved Instructions: Concussion (ED), Dizziness (ED) Additional Instructions: Return to the emergency department if you experience fever, chest pain, shortness of breath, abdominal pain with nausea and vomiting, weakness, numbness, or any other symptoms that are concerning to you. Your liver enzymes were mildly elevated, otherwise her blood work and imaging were reassuring. Continue to rest, remain well hydrated, [id number] pain medications as needed Follow up with your primary care doctor Patient Language: Amharic Prescriptions: No Action acetaminophen [Tylenol Extra Strength] 500 mg tablet 500 mg PO Q6H PRN (Reason: pain) Qty: 30 0RF tramadol 50 mg tablet 50 mg PO Q6H PRN (Reason: pain) Qty: 20 0RF Rx Instructions: Use for breakthrough pain only cyclobenzaprine 5 mg tablet 5 mg PO QHS PRN (Reason: muscle spasm) Qty: 14 0RF Rx Instructions: do NOT take with tramadol alprazolam 0.5 mg tablet 0.5 mg PO QHS PRN (Reason: anxiety) Qty: 30 0RF duloxetine 60 mg capsule,delayed release(DR/EC) 60 mg PO DAILY Qty: 30 0RF losartan 25 mg tablet See Rx Instructions .ROUTE .COMPLEX Qty: 45 1RF Dose Instruction: TAKE 1/2 TABLET BY MOUTH DAILY Rx Instructions: TAKE 1/2 TABLET BY MOUTH DAILY Follow-up/Referrals: Polo Kearns MD [Primary Care Provider] - Stand Alone Forms: Work/School Release IP
[2024-07-29 19:44] LABS: Basophils Percent Auto 0.3 % (0.2-1.2); Eosinophils Percent Auto 0.2 % (0-4.4); Hematocrit 40.7 % (37.0-47.0); Hemoglobin 13.4 g/dL (12.0-15.0); Immature Granulocyte Absolute 0.03 K/mm3 (0.00-0.031); Immature Granulocyte Percent A 0.3 % (0-0.5); Lymphocytes Absolute Auto 1.33 K/mm3 (0.9-3.2); Lymphocytes Percent Auto 14.3 % (18.3-44.2); Mean Corpuscular HGB Conc 32.9 g/dl (32-36); Mean Corpuscular Hemoglobin 33.8 pg (26-34); Mean Corpuscular Volume 102.5 fl (80-100); Monocytes Absolute Auto 0.5 K/mm3 (0.1-0.6); Neutrophils Absolute Auto 7.4 K/mm3 (1.3-6.7); Neutrophils Percent Auto 79.9 % (45.5-73.1); Platelet Count Result 343 k/mm3 (150-375); Red Blood Count 3.97 M/mm3 (4.2-5.4); Red Cell Distribution Width 12.8 % (11.5-14.5); White Blood Count 9.3 K/mm3 (4.5-10.0)
[2024-07-29 19:51] LABS: Alanine Aminotransferase 68 U/L (6-35); Albumin Level 4.4 g/dL (3.5-5.1); Alkaline Phosphatase 75 U/L (38-126); Anion Gap 7 mmol/L (4-12); Aspartate Amino Transferase 63 U/L (14-36); Bilirubin,Total 0.5 mg/dL (0.2-1.3); Blood Urea Nitrogen 12 mg/dL (7-17); Calcium 8.7 mg/dL (8.4-10.2); Carbon Dioxide 27 mmol/L (22-30); Chloride 99 mmol/L (98-107); Estimated CRCL calculation 135 ml/min; Estimated Glomerular Filt Rate > 60; Glucose 107 mg/dL (65-110); Potassium 4.4 mmol/L (3.4-5.0); Sodium 133 mmol/L (137-145)
== END 2024-07-29 21:56 | disposition home or self-care (01) ==
PROVIDERS: Emergency Provider Physician Assistant; PCP Family Medicine
DX: S06.0X0A Concussion without loss of consciousness, initial encounter (principal); R42 Dizziness and giddiness; E66.01 Morbid (severe) obesity due to excess calories; Z68.33 Body mass index [BMI] 33.0-33.9, adult; F41.9 Anxiety disorder, unspecified; F90.9 Attention-deficit hyperactivity disorder, unspecified type; Z86.16 Personal history of COVID-19; Z79.899 Other long term (current) drug therapy; Z77.22 Contact with and (suspected) exposure to environmental tobacco smoke (acute) (chronic); W18.2XXA Fall in (into) shower or empty bathtub, initial encounter
CPT/HCPCS: 36415; 70450; 80053; 85025; 93005; 96361; 96374; 99284; A9270; J2405; J7030

== ENCOUNTER 2025-01-30 10:47 | Outpatient (CLI) | payer BC, SELFPAY ==
[2025-01-30 11:08] LABS: Hematocrit 41.7 % (37.0-47.0); Hemoglobin 14.0 g/dL (12.0-15.0); Mean Corpuscular HGB Conc 33.6 g/dl (32-36); Mean Corpuscular Hemoglobin 33.4 pg (26-34); Mean Corpuscular Volume 99.5 fl (80-100); Platelet Count Result 379 k/mm3 (150-375); Red Blood Count 4.19 M/mm3 (4.2-5.4); White Blood Count 10.0 K/mm3 (4.5-10.0)
[2025-01-30 11:20] LABS: Alanine Aminotransferase 21 U/L (6-35); Albumin Level 4.9 g/dL (3.5-5.1); Alkaline Phosphatase 76 U/L (38-126); Anion Gap 5 mmol/L (4-12); Aspartate Amino Transferase 25 U/L (14-36); Bilirubin,Total 0.5 mg/dL (0.2-1.3); Blood Urea Nitrogen 12 mg/dL (7-17); Calcium 9.4 mg/dL (8.4-10.2); Carbon Dioxide 25 mmol/L (22-30); Chloride 102 mmol/L (98-107); Estimated Glomerular Filt Rate > 60; Glucose 112 mg/dL (65-110); Potassium 4.4 mmol/L (3.4-5.0); Sodium 132 mmol/L (137-145); Total Protein 8.2 g/dL (6.3-8.2)
[2025-01-30 11:21] LABS: Iron 120 ug/dL (37-170)
[2025-01-30 11:30] LABS: Percent Iron Saturation 32 % (20-50)
[2025-01-30 12:04] LABS: Thyroid Stimulating Hormone 1.120 uIU/mL (0.465-4.680)
== END 2025-01-30 10:48 | disposition home or self-care (01) ==
LOC: ANHLAB 10:52
PROVIDERS: PCP Family Medicine; Visit Provider Nurse Practitioner Family
DX: D64.9 Anemia, unspecified (principal); F41.9 Anxiety disorder, unspecified; I10 Essential (primary) hypertension; R74.8 Abnormal levels of other serum enzymes; E55.9 Vitamin D deficiency, unspecified; E66.01 Morbid (severe) obesity due to excess calories
CPT/HCPCS: 36415; 80053; 82306; 83540; 83550; 84443; 85027

== ENCOUNTER 2025-02-05 09:34 | Outpatient (CLI) | payer BC, SELFPAY ==
[2025-02-05 14:24] LABS: Dexamethasone Suppression Test 0.76 ug/dL
== END 2025-02-05 09:35 | disposition home or self-care (01) ==
LOC: ANHLAB 09:42
PROVIDERS: PCP Family Medicine; Visit Provider Nurse Practitioner Family
DX: R63.5 Abnormal weight gain (principal)
CPT/HCPCS: 36415; 82533